=== PATIENT | male | born 1955 | race African-American/Black ===

== ENCOUNTER 2017-09-23 15:03 | Emergency (ER) | payer SELFPAY ==
[~2017-09-23] VITALS: Ht 167.6 cm; Wt 73.0 kg
[2017-09-23] MEDS ORDERED: HYDROCODONE/ACETAMINOPHEN 5/325MG TABLET PO ONE (18:00)
[2017-09-23] MEDS ORDERED: BACITRACIN ZINC OINT UDPKT TOP ONE (20:30)
[2017-09-23 20:59] VITALS: BP 110/88
== END 2017-09-23 21:20 | disposition home or self-care (01) ==
LOC: ER 15:03
DX: S92.354A Nondisplaced fracture of fifth metatarsal bone, right foot, initial encounter for closed fracture (principal); V03.10XA Pedestrian on foot injured in collision with car, pick-up truck or van in traffic accident, initial encounter; Y93.89 Activity, other specified; Y92.488 Other paved roadways as the place of occurrence of the external cause
CPT/HCPCS: 73610; 73630; 99284; X7700; Z7610